=== PATIENT | female | born 1975 | race Caucasian/White ===

== ENCOUNTER 2019-06-24 08:43 | Day surgery (SDC) | payer BC ==
--- NOTE | 2019-06-24 09:16 | PCM.PREANE ---
Preanesthetic Assessment - Anesthesia/Transfusion/Family Hx Anesthesia History: Prior Anesthesia Without Reaction Family History of Anesthesia Reaction: No Transfusion History: No Prior Transfusion(s) Intubation History: Unknown - Review of Systems General: No Symptoms Pulmonary: No Symptoms Cardiovascular: No Symptoms Gastrointestinal: No Symptoms Neurological: No Symptoms Other: Reports: None - Physical Assessment Height: 5 ft 6 in Weight: 91.172 kg ASA Class: 2 Mental Status: Alert & Oriented x3 Airway Class: Mallampati = 2 Dentition: Reports: Normal Dentition Thyro-Mental Finger Breadths: 3 Mouth Opening Finger Breadths: 3 ROM/Head Extension: Full Lungs: Clear to Auscultation, Normal Respiratory Effort Cardiovascular: Regular Rate, Regular Rhythm - Allergies Allergies/Adverse Reactions: Allergies Allergy/AdvReac Type Severity Reaction Status Date / Time No Known Allergies Allergy Verified 06/18/19 16:27 - Blood Blood Available: No - Anesthesia Plan Pre-Op Medication Ordered: None - Acknowledgements Anesthesia Type Planned: General Anesthesia Pt an Appropriate Candidate for the Planned Anesthesia: Yes Alternatives and Risks of Anesthesia Discussed w Pt/Guardian: Yes Pt/Guardian Understands and Agrees with Anesthesia Plan: Yes PreAnesthesia Questionnaire Gastrointestinal History: Reports: Other (See Below) Other Gastrointestinal History: frequent heartburn-does not take any medications [employer]ER History: Reports: Psychiatric History: Reports: Depression Other Psychiatric History: does not take any medications Endocrine/Metabolic History: Reports: Obesity/BMI 30+ - Past Surgical History Head Surgeries/Procedures: Reports: None HEENT Surgical History: Reports: Adenoidectomy, Tonsillectomy Female Surgical History: Reports: Tubal Ligation - SUBSTANCE USE Smoking Status *Q: Never Smoker Recreational Drug Use History: No - HOME MEDS Home Medications: Home Meds levonorgestreL [Mirena] 1 unit IUTERINE ONETIME 06/18/19 [History]
[2019-06-24] MEDS ORDERED: Dexamethasone 4 MG/ML 5 ML MDV ONE (09:59)
[2019-06-24] MEDS ORDERED: Lidocaine 2% 5 ML SDV ONE (09:59)
[2019-06-24] MEDS ORDERED: Ondansetron 4 MG/2 ML SDV ONE ×2 (09:59→12:07)
[2019-06-24] MEDS ORDERED: fentaNYL 250 MCG/5 ML SDV ONE (10:00)
[2019-06-24] MEDS ORDERED: Propofol 200 MG/20 ML SDV ONE (10:00)
[2019-06-24] MEDS ORDERED: Midazolam 1 MG/ML 2 ML SDV ONE (10:00)
[2019-06-24] MEDS ORDERED: Famotidine 20 MG/2 ML SDV ONE (10:09)
[2019-06-24] MEDS ORDERED: Lactated Ringers 1,000 ML IV SCH (10:15)
[2019-06-24] MEDS ORDERED: Ketorolac 30 MG/ML SDV ONE (12:27)
[2019-06-24] MEDS ORDERED: Acetaminophen/HYDROcodone 325-5 MG Tab PO PRN (12:44)
--- NOTE | 2019-06-24 13:05 | PCM.POSTAN ---
POST ANESTHESIA ASSESSMENT - MENTAL STATUS Mental Status: Alert, Oriented - VITAL SIGNS Vital Signs: Last Vital Signs Temp 36.3 C 06/24/19 12:37 Pulse 59 L 06/24/19 12:52 Resp 15 06/24/19 12:52 BP 113/62 06/24/19 12:52 Pulse Ox 94 L 06/24/19 12:52 - RESPIRATORY Respiratory Status: Respiratory Rate WNL, Airway Patent, O2 Saturation Stable - CARDIOVASCULAR CV Status: Pulse Rate WNL, Blood Pressure Stable - GASTROINTESTINAL GI Status: No Symptoms - PAIN Pain Score: 2 - POST OP HYDRATION Hydration Status: Adequate & Stable - OBSERVATIONS Free Text/Narrative:: No anesthesia problems
--- NOTE | 2019-06-24 13:34 | PCM48HPAN ---
Post Anesthesia Note - EVALUATION WITHIN 48HRS OF ANESTHETIC Vital Signs in Normal Range: Yes Patient Participated in Evaluation: Yes Respiratory Function Stable: Yes Airway Patent: Yes Cardiovascular Function Stable: Yes Hydration Status Stable: Yes Pain Control Satisfactory: Yes Nausea and Vomiting Control Satisfactory: Yes Mental Status Recovered: Yes Vital Signs: Last Vital Signs Temp 36.3 C 06/24/19 12:37 Pulse 59 L 06/24/19 12:52 Resp 15 06/24/19 12:52 BP 113/62 06/24/19 12:52 Pulse Ox 94 L 06/24/19 12:52 - COMMENTS/OBSERVATIONS Free Text/Narrative:: no anesthesia problems
--- NOTE | 2019-06-24 17:56 | OR ---
SURGEON: Brent Molina MD DATE OF PROCEDURE: 06/24/2019 INDICATIONS: A 43-year-old female with menorrhagia, desiring definitive treatment with endometrial ablation. The patient currently has Mirena IUD in place and continues to have heavy bleeding with it. PREOPERATIVE DIAGNOSIS: Menorrhagia. POSTOPERATIVE DIAGNOSIS: Menorrhagia. PROCEDURES PERFORMED: Hysteroscopy, dilation and curettage, Candice endometrial ablation. FINDINGS: Uterus normal sized, anteverted and mobile. Normal-appearing vagina and cervix. Normal-appearing uterine cavity. Bilateral tubal ostia visualized. No polyps or fibroids noted. ANESTHESIA: General anesthesia. ESTIMATED BLOOD LOSS: 5 mL. DESCRIPTION OF PROCEDURE: The patient was consented and risks of procedure were discussed with all questions answered. She was taken to the operating room, placed under general anesthesia. She was placed in dorsal lithotomy position with her legs supported using stirrups. She was prepped with Betadine and draped in sterile fashion. A bimanual exam was performed. The uterus was found to be normal size, anteverted, and mobile. A weighted speculum was placed in the posterior vagina. The cervix and vagina were grossly normal with no masses or lesions. Anterior lip of the cervix was grasped with an Allis clamp. The uterus was sounded to 10 cm and the cervix was measured to be 4 cm. The cervix was then dilated with Hegar dilators to 7 mm. The hysteroscope was placed in the uterus under direct visualization with normal saline as distention medium. The cavity was normal appearing with endometrial tissue. Both tubal ostia were visualized. A sharp curettage was performed and endometrial curettings were obtained by scraping and rotating 360 degrees. The endometrial curettings were placed on Telfa pad and sent to pathology for evaluation. The cavity length of 6 cm was set on the Candice device. The device was inserted to the fundus, released, and the cervical cuff inflated. Cavity testing was performed with no leakage of gas and ablation was completed for 120 seconds. The Candice device was then removed. The hysteroscope was reinserted and the entire cavity was noted to be adequately ablated. The fluid deficit was 280 mL. The Allis clamp was removed from the cervix and the cervix was hemostatic. The speculum was removed. The patient was taken off dorsal lithotomy position and awoken from anesthesia. She was stable and brought to the recovery room. MADDI WEST /[id number] MTDD
== END 2019-06-24 14:15 | disposition home or self-care (01) ==
LOC: MW.SDS 08:43
PROVIDERS: ATTEND Obstetrics & Gynecology
DX: N92.0 Excessive and frequent menstruation with regular cycle (principal); E66.9 Obesity, unspecified; Z98.51 Tubal ligation status; Z68.32 Body mass index [BMI] 32.0-32.9, adult
CPT/HCPCS: 36415; 58563; 85027; 88305; J1100; J1885; J2001; J2250; J2405; J2704; J3010; J7120; S0028; 00952; J3490